=== PATIENT | female | born 1950 | race Caucasian/White ===

== ENCOUNTER → 2018-01-01 | Outpatient (CLI) | payer OTHER ==
[~2018-01-01] MED LIST: ATR10 PO; ATV/1 PO; CARB25TA12 PO; CYAN10004 PO; DSY/150 PO; FAMO20TA12 PO; HYDR-5688 PO; LEVO25TA5 PO; MIRT45TA3 PO; NSNN50 NAE; PANT40TA2 PO; RSP2 PO; ZOLP10TA6 PO
== END | disposition home or self-care (01) ==
LOC: C.LABMFLN 13:52
PROVIDERS: ATTEND Family Medicine
DX: Z00.00 Encounter for general adult medical examination without abnormal findings (principal); J01.90 Acute sinusitis, unspecified